=== PATIENT | female | born 1970 | race Hispanic/Latino ===

== ENCOUNTER 2017-03-13 10:01 | Emergency (ER) | payer SELFPAY ==
[~2017-03-13] VITALS: Ht 152.4 cm; Wt 81.6 kg
--- NOTE | 2017-03-13 10:17 | ED CARDIAC/CP/PALPITATIONS ---
History of Present Illness General Chief Complaint: Chest Pain Stated Complaint: CHEST PAIN Source: patient, family, old records Exam Limitations: no limitations Vital Signs & Intake/Output Vital Signs & Intake/Output Vital Signs Date Time Temp Pulse Resp B/P B/P Pulse O2 O2 Flow FiO2 Mean Ox Delivery Rate 03/13 1127 98.4 62 18 118/70 98 Room Air 03/13 1039 96.0 74 129/71 03/13 1026 80 130/66 03/13 1016 95 03/13 1007 98.6 87 18 137/75 98 Room Air Allergies Coded Allergies: NO KNOWN ALLERGIES (02/06/13) Reconcile Medications No Known Home Medications Triage Note: 46 YO FEMALE TO TRIAGE C/O CHEST PAIN RADIATING DOWN L ARM SINCE LAST NIGHT. C/O SOB. DENIES NVD PT TO ER ROOM 1 FOR EKG Triage Nurses Notes Reviewed? yes Onset: Abrupt Duration: day(s): (2), constant Timing: recent history Quality/Severity: mild, moderate Location: L SIDED Activities at Onset: none Prior Chest Pain/Card Workup: no prior chest pain Aspirin Today: 81 mg x 1, provided at home : No Patient currently breastfeeds: No HPI: 46-year-old female no medical history presents to ER for evaluation complaining of left-sided reproducible chest pain rating down her left arm since yesterday afternoon came on while she was cleaning. She also reports a dry mouth. Symptoms came on sudden onset described as a clenching feeling 9 out of 10 she took an aspirin yesterday without improvement she denies recent trauma or fall. No shortness of breath, no pain with inspiration no cough no hemoptysis no neck or jaw pain no family history of sudden cardiac disease noted on pain nausea vomiting diarrhea. She states today her arm feels heavy and numb in her medically. No modifying factors or associated symptoms otherwise no recent immobility or travel and the leg swelling or pain Past History Travel History Traveled to [place] past 21 day No Medical History Any Pertinent Medical History? see below for history Neurological: NONE EENT: NONE Cardiovascular: HEART MURMUR Respiratory: NONE Gastrointestinal: NONE Hepatic: NONE Renal: NONE Musculoskeletal: NONE Psychiatric: NONE Endocrine: NONE Blood Disorders: NONE Cancer(s): NONE FLEET ASSISTANT/Reproductive: NONE Surgical History Surgical History: non-contributory Psychosocial History What is your primary language Filipino Tobacco Use: Never used Family History Hx Contributory? No Review of Systems Review of Systems Constitutional: Reports: see HPI. All Other Systems: Reviewed and Negative Comments Review of systems: See HPI, All other systems negative. Constitutional, no chills no fever, no malaise HEENT: No visual changes no sore throat no congestion Cardiovascular: chest pain , no palpitation Skin: no rashes, no change in skin Respiratory: No dyspnea no cough no sputum GI: No nausea no vomiting, no diarrhea, : No dysuria No hematuria, Muscle skeletal: No joint pain, no back pain, no neck pain, Neurologic: no headache Psych: No stress Heme/endocrine: No bruising Immunology: No lymphadenopathy Physical Exam Physical Exam General Appearance: well developed/nourished, no apparent distress, alert, awake Cardiovascular: regular rate/rhythm Comments: Well-developed well-nourished person in no acute distress HEENT: Normal EENT exam; PERRL, EOMI, HEAD is atraumatic. moist mucous membranes. Neck: Supple, no lymphadenopathy, normal range of motion Back: Nontender, no CVA tenderness. Full range of motion Cardiovascular: Regular rate and rhythms no murmurs rubs Respiratory: Chest tender.There were no bony deformities, no asymmetry. No respiratory distress. Patient speaking in full complete sentences. Breath sounds clear to auscultation bilaterally: NO W/R/R Abdomen: Soft, nontender nondistended, no appreciable organomegaly. Normal bowel sounds. No rebound/guarding, N Extremity: No edema, full range of motion of extremities 5 out of 5 strength bilateral upper and lower extremities no edema to the left upper extremity no ecchymosis Neuro: Alert oriented x3, motor sensory param Skin: No appreciable rash on exposed skin, skin is warm and dry. Psych: Mood and affect is normal, memory and judgment is normal. Core Measures ACS in differential dx? Yes Severe Sepsis Present: No Septic Shock Present: No All Positive = PERC Ruled Out: Positive: age < 50 years, heart rate < 100 bpm, O2 sat > 94%, no hemoptysis, no hormone use, no prior DVT or PE, no unilateral leg swellin, no surgery/trauma w/ in 4w. Progress Differential Diagnosis: AMI, atrial fibrillation, CHF/pulm edema, musculoskeletal pain, myocarditis, pericarditis, pneumonia, pneumothorax, pulmonary embolism, PVCs/PACs Plan of Care: Orders Procedure Date/time Status TROPONIN LEVEL 03/13 1013 Complete MAGNESIUM 03/13 1013 Complete COMPREHENSIVE METABOLIC PANEL 03/13 1013 Complete CHOLESTEROL 03/13 1013 Complete CBC WITHOUT DIFFERENTIAL 03/13 1013 Complete EKG 03/13 1003 Active Laboratory Tests 03/13/17 1014: Anion Gap 10, Estimated GFR > 60, BUN/Creatinine Ratio 12.9, Glucose 125 H, Calcium 9.6, Magnesium 1.6, Total Bilirubin 0.5, AST 48 H, ALT 63 H, Alkaline Phosphatase 75, Troponin I < 0.01, Total Protein 7.5, Albumin 4.6, Globulin 2.9, Albumin/Globulin Ratio 1.6, Cholesterol 240 H, CBC w Diff NO MAN DIFF REQ, RBC 4.02 L, MCV 94.7, MCH 32.1 H, RDW 13.0, MPV 9.3, Gran % 52.7, Lymphocytes % 34.1, Monocytes % 9.1, Eosinophils % 3.7, Basophils % 0.4, Absolute Granulocytes 3.2, Absolute Lymphocytes 2.1, Absolute Monocytes 0.6, Absolute Eosinophils 0.2, Absolute Basophils 0, PUBS MCHC 33.9 Labs ordered old records reviewed patient medicated Toradol, perC negative pain is reproducible with palpation do not believe the patient requires repeat troponin reports improvement in pain with Toradol Case discussed with Dr. Martins who agrees with plan I discussed with the patient at length all of their results. I had an extensive conversation regarding need for close follow up with their primary care physician this week as well as return precautions. I answered all of their questions, they feel comfortable with the plan and follow-up care. I discussed with the patient/family the medications that they will receive. I gave them signs and symptoms that could indicate an adverse reaction. I have advised them to limit their activities until they can see how they respond to the medication. (DANNY DWYER,CATERINA) Diagnostic Imaging: Viewed by Me: Radiology Read. Discussed w/RAD: Radiology Read. Radiology Impression: PATIENT: SVEN LUCIA PRESENT AGE: 46 PATIENT ACCOUNT NO: [id number] : 71 LOCATION: [facility] ORDERING PHYSICIAN: CATERINA DWYER SERVICE DATE: 03/13/17 EXAM TYPE: RAD - XRY-PORTABLE CHEST XRAY EXAMINATION: XR PORTABLE CHEST CLINICAL INFORMATION: Chest pain and shortness of breath COMPARISON: None TECHNIQUE: Portable frontal view of the chest was obtained. FINDINGS: The cardiac and mediastinal contours are normal. The lungs are clear. There is no pleural effusion or pneumothorax. Visualized bony structures are unremarkable. IMPRESSION: Unremarkable examination. DICTATED BY: SAADIA DEVI MD DATE/TIME DICTATED:03/13/171046 GOVERNMENT RELATIONS ANALYST:JULIA DATE/TIME TRANSCRIBED:1046 CONFIDENTIAL, DO NOT COPY WITHOUT APPROPRIATE AUTHORIZATION. < Electronically signed in Other Vendor System> SIGNED BY: SAADIA DEVI MD 03/13/17 1051 Initial ED EKG: normal intervals, normal p-waves, normal QRS complex, normal sinus rhythm (70) Departure Departure Time of Disposition: 1114 Disposition: HOME OR SELF CARE Condition: Stable Clinical Impression Primary Impression: Atypical chest pain Referrals: PATIENT HAS NO PRIMARY CARE DR (PCP/Family) Additional Instructions: Rest, Tylenol Motrin for pain follow-up with your primary care physician and return to ER with any concerns no heavy lifting. Departure Forms: Customer Survey General Discharge Information Prescriptions: Current Visit Scripts No Known Home Medications Critical Care Note Critical Care Note Critical Care Time: non-applicable
[2017-03-13 10:40] LABS: ABSOLUTE BASOPHIL COUNT 0 /CUMM (0.0-0.2); ABSOLUTE EOSINOPHIL COUNT 0.2 /CUMM (0.0-0.7); ABSOLUTE GRANULOCYTE CT 3.2 /CUMM (1.4-6.5); ABSOLUTE LYMPH COUNT 2.1 /CUMM (1.2-3.4); ABSOLUTE MONOCYTE COUNT 0.6 /CUMM (0.10-0.60); BASOPHIL % 0.4 % (0.0-2.0); EOSINOPHIL % 3.7 % (0-5); GRANULOCYTE % 52.7 % (42.2-75.2); HEMATOCRIT 38.1 % (37-47); MEAN CORPUSCULAR HGB 32.1 PG (27.0-31.0); MEAN CORPUSCULAR HGB CONC 33.9 G/DL (33.0-37.0); MEAN CORPUSCULAR VOLUME 94.7 FL (81.0-99.0); MEAN PLATELET VOLUME 9.3 FL (7.4-10.4); PLATELET COUNT 227 /CUMM (130-400); RED BLOOD CELL CT 4.02 /CUMM (4.20-5.40)
--- NOTE | 2017-03-13 10:51 | RADIOLOGY REPORT ---
EXAMINATION: XR PORTABLE CHEST CLINICAL INFORMATION: Chest pain and shortness of breath COMPARISON: None TECHNIQUE: Portable frontal view of the chest was obtained. FINDINGS: The cardiac and mediastinal contours are normal. The lungs are clear. There is no pleural effusion or pneumothorax. Visualized bony structures are unremarkable. IMPRESSION: Unremarkable examination.
[2017-03-13 11:27] VITALS: BP 118/70
== END 2017-03-13 11:39 ==
LOC: ERH 10:01
PROVIDERS: Physician Assistant Medical
DX: R07.89 Other chest pain (principal); M79.602 Pain in left arm; R06.02 Shortness of breath
CPT/HCPCS: 93005; 93010; 96374; J1885